=== PATIENT | female | born 1995 | race Caucasian/White ===

== ENCOUNTER 2017-05-15 18:11 | Emergency (ER) | payer SELFPAY ==
[2017-05-15 18:13] VITALS: BP 126/70; PULSE 95; RESP 18; TEMP 36.6; O2SAT 97; BMI 38.2
== END 2017-05-15 19:30 | disposition left against medical advice (07) ==
LOC: ED 19:33
PROVIDERS: Emergency Provider Emergency Medicine
DX: R69 Illness, unspecified (principal)

== ENCOUNTER 2017-08-09 02:52 | Emergency (ER) | payer SELFPAY ==
[2017-08-09 02:54] VITALS: BP 124/70; PULSE 74; RESP 16; TEMP 36.6; O2SAT 100; BMI 38.3
--- NOTE | 2017-08-09 03:10 | ED.VISSUMM ---
- ER Visit Summary Date of Service: 08/09/17 Chief Complaint: Dental pain History of Present Illness: The patient is a 22 F with gradual onset of left-sided dental pain over the past 2 weeks but states the pain got significant only worse tonight. She took Aleve earlier yesterday. She tried Anbesol topically tonight which only helped for about 5 minutes. Patient does report having [facility]. She states the pain is on the left side of her mouth but is unsure if it is on the upper or lower surface. She does not remember a recent dental injury. Physical Examination: Vital signs unremarkable. Patient sitting upright in bed. She is tearful. Head and neck examination was no facial edema or erythema. TMs are clear bilaterally. Intraoral examination reveals left maxillary third molar to be decayed with tenderness. She has mild surrounding gum edema. The left mandibular first molar is also tender with mild gum edema. There is no trismus. There is no submandibular fullness and there is no sign of Andrade's. She is tolerating secretions well and has a strong voice. Uvula is midline. There is no cervical lymphadenopathy. Heart is regular rate and rhythm without murmur. Lung sounds are clear. Test Results: [] Emergency Department Course and Treatment: Patient be given prescriptions for Naprosyn and Pen-Vee K. She be given a home pack of Mentcle only. She will follow with her dentist on Friday as scheduled. Treatment Plan: [] Disposition: Discharge Impression: Odontalgia This note was generated with [employer] dictation software. It may contain incorrect words, spelling, and punctuation that were not noted in review of the chart prior to signing ED Disposition - Plan for ED Patient: Chief Complaint: Dental Referrals: Care Physician,No Primary [Primary Care Provider] -
--- NOTE | 2017-08-09 03:13 | ED.DEP ---
ED Disposition - Plan for ED Patient: Disposition: Home or Assisted Living Chief Complaint: Dental Instructions: ED Tooth Pain Prescriptions: Naproxen [Naprosyn] 500 mg PO BID PRN #20 tablet Penicillin V Potassium 500 mg PO 4X/DAY #40 tablet Additional Instructions: Follow-up with [facility] on Friday as scheduled.
--- NOTE | 2017-08-09 03:13 | ED.DCSUM_ITS ---
- ER Visit Summary Date of Service: 08/09/17 Chief Complaint: Dental pain History of Present Illness: The patient is a 22 F with gradual onset of left- sided dental pain over the past 2 weeks but states the pain got significant only worse tonight. She took Aleve earlier yesterday. She tried Anbesol topically tonight which only helped for about 5 minutes. Patient does report having appointment at [facility] on Friday. She states the pain is on the left side of her mouth but is unsure if it is on the upper or lower surface. She does not remember a recent dental injury. Physical Examination: Vital signs unremarkable. Patient sitting upright in bed. She is tearful. Head and neck examination was no facial edema or erythema. TMs are clear bilaterally. Intraoral examination reveals left maxillary third molar to be decayed with tenderness. She has mild surrounding gum edema. The left mandibular first molar is also tender with mild gum edema. There is no trismus. There is no submandibular fullness and there is no sign of Andrade's. She is tolerating secretions well and has a strong voice. Uvula is midline. There is no cervical lymphadenopathy. Heart is regular rate and rhythm without murmur. Lung sounds are clear. Test Results: [] Emergency Department Course and Treatment: Patient be given prescriptions for Naprosyn and Pen-Vee K. She be given a home pack of Surprise only. She will follow with her dentist on Friday as scheduled. Treatment Plan: [] Disposition: Discharge Impression: Odontalgia This note was generated with [employer] dictation software. It may contain incorrect words, spelling, and punctuation that were not noted in review of the chart prior to signing ED Disposition - Plan for ED Patient: Chief Complaint: Dental Referrals: Care Physician,No Primary [Primary Care Provider] -
[2017-08-09] MEDS: Penicillin Vk 250 MG Tablet 500 MG PO (03:23)
[2017-08-09] MEDS: HYDROcodone Bitartrate/Apap 5/325 Tablet PO ×2 (03:24)
[2017-08-09] MEDS: Naproxen 500 MG Tablet PO (03:24)
[2017-08-09 03:30] VITALS: RESP 18
== END 2017-08-09 03:31 | disposition home or self-care (01) ==
LOC: ED 03:24
PROVIDERS: Emergency Provider Emergency Medicine
DX: K08.89 Other specified disorders of teeth and supporting structures (principal); K02.9 Dental caries, unspecified; F32.9 Major depressive disorder, single episode, unspecified; Z79.899 Other long term (current) drug therapy; Z72.0 Tobacco use
CPT/HCPCS: 99283

== ENCOUNTER 2017-08-20 20:59 | Emergency (ER) | payer SELFPAY ==
[2017-08-20 21:00] VITALS: BP 98/61; PULSE 74; RESP 18; TEMP 36.8; O2SAT 99; BMI 36.8
[2017-08-20 21:54] LABS: Absolute Lymphocyte Count 2.42 X10^3/ul (0.83-4.51); Absolute Neutrophil Count 5.8 X10^3/uL (2.0-7.7); Basophil# 0.05 X10^3/uL; Basophil% 0.5 % (0-1); Eosinophil# 0.43 X10^3/uL; Eosinophils% 4.6 % (0-5); Hematocrit 38.8 % (37-47); Hemoglobin 12.9 g/dl (12.0-15.0); Lymphocyte # 2.42 X10^3/ul (4.0); Mean Corp Hgb Conc 33.2 g/gl (32-36); Mean Corpuscular Hgb 28.6 pg (27.0-32.0); Mean Platelet Vol. 9.4 fl (6.2-12.0); Monocyte# 0.58 X10^3/uL; Monocyte% 6.2 % (0-10); Neutrophil # 5.81 X10^3/uL (2.7-7.7); Neutrophil % 62.6 % (47-70); Platelet Count 346 K/mm3 (150-450); RBC Distribution Width CV 13.1 % (11.6-14.6); RBC Distribution Width SD 41.5 fl (35.1-43.9); Red Blood Count 4.51 M/mm3 (4.2-5.4); White Blood Count 9.3 K/mm3 (4.4-11.0)
[2017-08-20 21:55] LABS: POSITIVE COUNT NO; POSITIVE DIFFERENTIAL NO; POSITIVE MORPHOLOGY NO
[2017-08-20 21:56] LABS: Amphetamine Urine VISTA NEGATIVE (<1000 ng/mL); Barbiturate Urine VISTA NEGATIVE (< 200 ng/mL); Benzodiazepine Urine VISTA NEGATIVE (< 200 ng/mL); Cocaine Urine VISTA NEGATIVE (< 300 ng/mL); Ecstacy Urine VISTA NEGATIVE (< 500 ng/mL); Methadone Urine VISTA NEGATIVE (< 300 ng/mL); PCP Urine VISTA NEGATIVE (< 25 ng/mL); THC Urine VISTA NEGATIVE (< 50 ng/mL); Vista UDS pH Range 6
[2017-08-20 22:00] VITALS: RESP 16
[2017-08-20 22:01] LABS: Bacteria 0 SEEN /hpf (None Seen); Mucous, Urine 0 SEEN /hpf (<or=2+); Squamous Epithelial Cells - UA 0 SEEN /hpf (5-10)
[2017-08-20 22:02] LABS: Color, Urine Yellow (Yellow); Glucose, Dipstick Normal (Normal); Ketone-Dipstick Negative (Negative); Leukocyte Esterase-Dipstick 25 /ul (Negative); Nitrite-Dipstick Negative (Negative); Occult Blood-Urine 250 /ul (Negative); Protein-Dipstick 15 mg/dl (Negative); Specific Gravity, Urine 1.015 (1.002-1.030); Urine Bilirubin Dipstick Negative (Negative); Urine Clarity Sl. Cloudy (Clear); Urine Urobilinogen Normal (Normal)
[2017-08-20 22:08] LABS: Anion Gap 4 (5-15); BUN 11 mg/dL (7-18); BUN/Creat Ratio 15.9 RATIO (10-20); Calcium,Total 8.9 mg/dL (8.5-10.1); Chloride 110 mmol/L (98-107); Creatinine, Serum 0.69 mg/dL (0.55-1.02); EST Glomerular Filtration Rate 111 mL/min (>60); Est Glom Filt Rate - Afr Amer 135 mL/min (>60); Glucose 93 mg/dL (74-106); Potassium 3.7 mmol/L (3.5-5.1); Sodium Level 138 mmol/L (136-145)
[2017-08-20 22:13] LABS: Pregnancy, Serum, hCG Quali. NEGATIVE Negative (0-9 Nonpreg)
[2017-08-20 22:13] LABS: Red Blood Cells-Urine 50-100 SEEN /hpf (0-5); White Blood Cells 0-5 SEEN /hpf (0-5)
[2017-08-20 22:22] LABS: Alcohol, Blood (Medical)-Serum < 3.0 mg/dL
--- NOTE | 2017-08-20 22:31 | NURSING ---
CLOTHING INVENTORY: BOOTS, SOCKS, JEANS, TSHIRT, UNDERWEAR.
--- NOTE | 2017-08-20 22:35 | ED.RN ---
CALLED [facility]. 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
--- NOTE | 2017-08-20 23:10 | ED.RN ---
CRISIS IS HERE.
[2017-08-20 23:42] VITALS: PULSE 73; RESP 16; O2SAT 98
--- NOTE | 2017-08-21 00:03 | ED.VISSUMM ---
- ER Visit Summary Date of Service: 08/21/17 Chief Complaint: Suicidal thoughts History of Present Illness: The patient is a 22 F who reports that she has had depression for quite some time. She went to the [facility] proximally 1 month ago and was placed on Celexa. She reports that she actually feels that she is worsening rather than improving. Over the past few days she has had suicidal thoughts. When asked about a plan she reports that there are a lot of chemicals at work or that she may kill herself with her jeep. Physical Examination: Vitals: Stable. Afebrile. General: Well-nourished and well-developed. Head: Normocephalic atraumatic. Neck: Supple, no lymphadenopathy. No JVD. Nontender. Cardiovascular: Regular rate and rhythm. No murmurs. Respiratory: No respiratory distress. Clear to auscultation bilaterally. Abdominal: Soft, nontender, nondistended, normal bowel sounds. No guarding, rebound, or peritoneal signs. Back: Nontender. Extremities: Nontender, no edema. Skin: Normal color, no rash. Neurologic: Alert and oriented ?3. Cranial nerves II through XII are intact. Normal strength and sensation. Mental status exam: Patient appears their stated age. Good posture and grooming. Good eye contact. Normal rate, volume, and latency of speech. No homicidal ideation. No auditory or visual hallucinations. Flow of thought is logical. Insight and judgment is fair. Test Results: BC is normal. Chem-7 is more for chloride of 110. UA shows no infection. She does have 50-100 red blood cells, but she is on her menses. test is negative. Tox screen is normal. Blood alcohol level is negative. Emergency Department Course and Treatment: Patient's resting comfortably without complaint. Treatment Plan: The patient was seen by the counseling center in the emergency department. She has had some time to calm down. She denies any suicidal plan at this time. She reports she has suicidal thoughts that have been long-standing. She is able to contract for safety. She will be discharged instructions to follow-up with them tomorrow for further evaluation. Return to the emergency department for any worsening symptoms. Disposition: To home in improved and stable condition. Impression: 1. Depression. This note was generated with [employer] software. It may contain incorrect words, spelling, and punctuation that were not noted in review of the chart prior to signing ED Disposition - Plan for ED Patient: Chief Complaint: Suicidal Instructions: ED Depression Referrals: Counseling,Center [GROUP OF PHYSICIANS] - As soon as possible
[2017-08-21 01:20] VITALS: BP 121/76; BP 124/89; PULSE 67; RESP 16; O2SAT 96; O2SAT 98
--- NOTE | 2017-08-21 01:21 | NURSING ---
pt signed a safety plan. pt following up with the couseling center.
== END 2017-08-21 01:21 | disposition home or self-care (01) ==
LOC: ED 21:48
PROVIDERS: Emergency Provider Emergency Medicine
DX: F32.9 Major depressive disorder, single episode, unspecified (principal); R30.0 Dysuria; Z79.899 Other long term (current) drug therapy; F17.200 Nicotine dependence, unspecified, uncomplicated
CPT/HCPCS: 36415; 80048; 80307; 80320; 81001; 84703; 85025; 99283; G0480

== ENCOUNTER 2017-09-15 02:11 | Emergency (ER) | payer SELFPAY ==
[2017-09-15 02:12] VITALS: BP 142/92; PULSE 77; RESP 17; TEMP 36.6; O2SAT 99; BMI 36.9
--- NOTE | 2017-09-15 02:37 | ED.VISSUMM ---
- ER Visit Summary Date of Service: 09/15/17 Chief Complaint: Left lower molar dental pain History of Present Illness: The patient is a 22 F history of anxiety and depression. States yesterday started having left lower molar dental pain. Denies any trauma. Denies any fever. States that there is swelling in that area. States it hurts more to chew on that last lower tooth. Physical Examination: Well-appearing young female. Vital signs are stable afebrile. She does not look septic toxic. H EENT exam left lower molar is tender palpation. There is mild periapical swelling. There is no trismus. Posterior pharynx is unremarkable. She has no trouble swallowing or breathing. Most of her dentition is in reasonable condition. There are few teeth with cavities. Neck nontender no lymphadenopathy. There is no facial swelling. No trouble swallowing or breathing. Lungs clear to auscultation bilaterally. Heart regular rhythm no murmur. Abdomen soft nontender. She is moving all 4 extremities. Neurologically she is awake and alert. Test Results: None Emergency Department Course and Treatment: Dental block performed with local anesthetic to the left lower molar. Treatment Plan: Treated with Naprosyn for pain and Pen-Vee K for possible dental abscess. Patient will follow-up with [facility] and dental clinic. Disposition: Discharge Impression: Acute left lower molar dental pain rule out dental abscess Dental block for local anesthetic by ER physician This note was generated with [employer] dictation software. It may contain incorrect words, spelling, and punctuation that were not noted in review of the chart prior to signing ED Disposition - Plan for ED Patient: Chief Complaint: Dental Referrals: Care Physician,No Primary [Primary Care Provider] -
--- NOTE | 2017-09-15 02:39 | ED.DEP ---
ED Disposition - Plan for ED Patient: Disposition: Home or Assisted Living Chief Complaint: Dental Instructions: Dental Abscess Prescriptions: Naproxen [Naprosyn] 500 mg PO BID PRN PRN #20 tab PRN Reason: Pain Penicillin (100ML) [Pen-Vee K] 500 mg PO 4X/DAY #40 cap Referrals: Genevieve Jara [NON-STAFF] - As soon as possible Additional Instructions: Up with a dentist soon as possible. Naprosyn or Motrin for. Pen-Vee K antibiotic 1 pill 4 times a day for possible dental abscess.
== END 2017-09-15 02:50 | disposition home or self-care (01) ==
PROVIDERS: Emergency Provider Emergency Medicine
DX: K04.7 Periapical abscess without sinus (principal); K02.9 Dental caries, unspecified; K08.89 Other specified disorders of teeth and supporting structures; F41.9 Anxiety disorder, unspecified; F32.9 Major depressive disorder, single episode, unspecified; Z79.899 Other long term (current) drug therapy; Z72.0 Tobacco use
CPT/HCPCS: 64402; 99282

== ENCOUNTER 2017-10-20 23:40 | Emergency (ER) | payer OTHER, SELFPAY ==
[2017-10-20 23:41] VITALS: BP 117/80; PULSE 69; RESP 16; TEMP 37; O2SAT 99; BMI 36.6
--- NOTE | 2017-10-21 00:20 | ED.DCSUM_ITS ---
- ER Visit Summary Date of Service: 10/21/17 Chief Complaint: Anxiety attack History of Present Illness: The patient is a 22 F who presents with anxiety. She was in an argument. They were arguing over whether her tattoo was infected. She complains of sharp chest pain which began when she became very anxious and being crying. She otherwise has no complaints. Physical Examination: Afebrile vitals are normal Patient tearful and anxious Heart regular rate and rhythm Lungs clear Abdomen soft I see no evidence of infection at the site of her tattoo there is no erythema no streaking no tenderness or warmth Test Results: Not indicated Emergency Department Course and Treatment: Patient presents with a panic attack and anxiety. She has no suicidal or homicidal ideation. She was given a dose of Ativan here. She was discharged. She was advised to follow-up with her healthcare provider who treats her anxiety depression and bipolar disorder. Treatment Plan: [] Disposition: Discharge Impression: Anxiety This note was generated with [employer] dictation software. It may contain incorrect words, spelling, and punctuation that were not noted in review of the chart prior to signing ED Disposition - Plan for ED Patient: Chief Complaint: Anxiety Referrals: Care Physician,No Primary [Primary Care Provider] -
--- NOTE | 2017-10-21 00:20 | ED.DEP ---
ED Disposition - Plan for ED Patient: Chief Complaint: Anxiety Instructions: ED Panic Attack Referrals: Care Physician,No Primary [Primary Care Provider] -
[2017-10-21] MEDS: LORazepam 1 MG Tablet PO (00:32)
[2017-10-21 00:35] VITALS: BP 110/56; PULSE 65; RESP 17; O2SAT 98
== END 2017-10-21 00:36 | disposition home or self-care (01) ==
LOC: ED 10-21 00:22
PROVIDERS: Emergency Provider Emergency Medicine
DX: F41.9 Anxiety disorder, unspecified (principal); F32.9 Major depressive disorder, single episode, unspecified; F31.9 Bipolar disorder, unspecified; Z79.899 Other long term (current) drug therapy; Z72.0 Tobacco use
CPT/HCPCS: 99283

== ENCOUNTER 2017-11-07 00:02 | Observation (INO) | payer OTHER, SELFPAY ==
[2017-11-07] VITALS (8 sets, daily range): BP systolic 111–136; BP diastolic 61–82; PULSE 73–89; RESP 16–18; TEMP 36.5–37.1; O2SAT 97–99; BMI 36.8; BMI 37.3
--- NOTE | 2017-11-07 01:16 | CT_ITS ---
STUDY: CT BRAIN WITHOUT CONTRAST REASON FOR EXAM: Female, 22 years old. Constant ringing in ears. Dizziness. Headache. Symptoms started last night. RADIATION DOSAGE (If Supplied By Facility): CTDIvol = ( 44.99 ) mGy, DLP = ( 745.49 ) mGycm TECHNIQUE: Transaxial CT imaging of the brain was performed without administration of intravenous contrast material. Individualized dose optimization techniques were used for this CT. COMPARISON: None. FINDINGS: Normal soft tissue structures. Normal calvarium. Normal size ventricles and extra-axial spaces for the patient's age. Normal white matter tracts of the cerebral hemispheres. Normal basal ganglia and thalami. Normal brainstem. Normal cerebellum. There is no intracranial hemorrhage. There are no findings of an acute ischemic infarction. Normal visualized paranasal sinuses. CT/Brain/Head without Contrast IMPRESSION: Normal unenhanced CT scan of the brain. Electronically Signed: Keaton Gonzalez MD at 2:23 EDT , Service support ,
--- NOTE | 2017-11-07 01:32 | ED.VISSUMM ---
- ER Visit Summary Date of Service: 11/07/17 Chief Complaint: Tinnitus History of Present Illness: The patient is a 22 F who presents with tinnitus that began yesterday. Patient states she feels like there is ringing in both ears. Patient states she feels like she left her earplugs in but knows that she did not. Patient denies any other hearing changes. Patient admits to a mild headache and right maxillary pressure. Patient states she takes for regular strength aspirin daily. Patient is also on Prozac and Seroquel for depression, anxiety, and bipolar disorder. Physical Examination: Vital signs are stable. Patient is afebrile. Patient is in no acute distress. Tympanic membranes are clear bilaterally. External auditory canals are clear bilaterally. Pupils are equal, round, reactive to light bilateral. Extraocular muscles are intact. Oral mucosa is pink and moist. Neck is supple. Trachea is midline. There is no JVD noted. Heart was regular rate and rhythm. Lungs are clear and equal bilateral. There is good respiratory effort noted. Cranial nerves II through XII are intact. There are no focal motor or sensory deficits noted. Test Results: CT scan of the brain was obtained. There is no acute intracranial abnormality noted. CBC showed a mild leukocytosis of 12.0. Basic metabolic profile was within normal limits. Acetaminophen level was normal. Salicylate level was elevated at 38.2. Emergency Department Course and Treatment: Case was discussed with poison control. They recommended administering 2 A of bicarb now and 2-3 A of bicarb and D5W and running it at 1.5-2 times maintenance rate. They recommend repeating the levels every 2 hours and once the levels are less than 30 the bicarb drip may be stopped. Case was discussed with the hospitalist. Patient will be admitted for salicylate toxicity. Disposition: Admit to hospital Impression: Salicylate toxicity This note was generated with [employer] dictation software. It may contain incorrect words, spelling, and punctuation that were not noted in review of the chart prior to signing ED Disposition - Plan for ED Patient: Disposition: Acute Care Hospital [facility] Chief Complaint: Ear Problem Diagnosis: Salicylate poisoning Referrals: Care Physician,No Primary [Primary Care Provider] -
--- NOTE | 2017-11-07 01:35 | ED.DCSUM_ITS ---
- ER Visit Summary Date of Service: 11/07/17 Chief Complaint: Tinnitus History of Present Illness: The patient is a 22 F who presents with tinnitus that began yesterday. Patient states she feels like there is ringing in both ears. Patient states she feels like she left her earplugs in but knows that she did not. Patient denies any other hearing changes. Patient admits to a mild headache and right maxillary pressure. Patient states she takes for regular strength aspirin daily. Patient is also on Prozac and Seroquel for depression, anxiety, and bipolar disorder. Physical Examination: Vital signs are stable. Patient is afebrile. Patient is in no acute distress. Tympanic membranes are clear bilaterally. External auditory canals are clear bilaterally. Pupils are equal, round, reactive to light bilateral. Extraocular muscles are intact. Oral mucosa is pink and moist. Neck is supple. Trachea is midline. There is no JVD noted. Heart was regular rate and rhythm. Lungs are clear and equal bilateral. There is good respiratory effort noted. Cranial nerves II through XII are intact. There are no focal motor or sensory deficits noted. Test Results: CT scan of the brain was obtained. There is no acute intracranial abnormality noted. CBC showed a mild leukocytosis of 12.0. Basic metabolic profile was within normal limits. Acetaminophen level was normal. Salicylate level was elevated at 38.2. Emergency Department Course and Treatment: Case was discussed with poison control. They recommended administering 2 A of bicarb now and 2-3 A of bicarb and D5W and running it at 1.5-2 times maintenance rate. They recommend repeating the levels every 2 hours and once the levels are less than 30 the bicarb drip may be stopped. Case was discussed with the hospitalist. Patient will be admitted for salicylate toxicity. Disposition: Admit to hospital Impression: Salicylate toxicity This note was generated with [employer] dictation software. It may contain incorrect words, spelling, and punctuation that were not noted in review of the chart prior to signing ED Disposition - Plan for ED Patient: Disposition: Acute Care Hospital [facility] Chief Complaint: Ear Problem Diagnosis: Salicylate poisoning Referrals: Care Physician,No Primary [Primary Care Provider] -
[2017-11-07 02:13] LABS: Absolute Lymphocyte Count 3.14 X10^3/ul (0.83-4.51); Absolute Neutrophil Count 7.5 X10^3/uL (2.0-7.7); Basophil# 0.06 X10^3/uL; Basophil% 0.5 % (0-1); Eosinophil# 0.48 X10^3/uL; Hemoglobin 13.2 g/dl (12.0-15.0); Lymphocyte # 3.14 X10^3/ul (4.0); Lymphocyte % 26.2 % (19-41); Mean Corpuscular Hgb 29.1 pg (27.0-32.0); Mean Corpuscular Volume 88.3 fL (81-99); Mean Platelet Vol. 9.7 fl (6.2-12.0); Monocyte# 0.84 X10^3/uL; Neutrophil # 7.46 X10^3/uL (2.7-7.7); Neutrophil % 62.2 % (47-70); Platelet Count 392 K/mm3 (150-450); RBC Distribution Width SD 45.4 fl (35.1-43.9); Red Blood Count 4.53 M/mm3 (4.2-5.4)
[2017-11-07 02:19] LABS: POSITIVE COUNT NO; POSITIVE DIFFERENTIAL NO; POSITIVE MORPHOLOGY NO
[2017-11-07 02:30] LABS: ALB/GLOB Ratio 0.9 RATIO (0.9-2.4); AST(SGOT) 20 U/L (15-37); Alanine Aminotransfer ALT/SGPT 20 U/L (13-56); Albumin, Serum 3.8 g/dL (3.2-5.0); Alkaline Phosphatase 98 U/L (45-117); Anion Gap 5 (5-15); BUN 11 mg/dL (7-18); BUN/Creat Ratio 11.6 RATIO (10-20); Calcium,Total 8.6 mg/dL (8.5-10.1); Chloride 112 mmol/L (98-107); Creatinine, Serum 0.95 mg/dL (0.55-1.02); EST Glomerular Filtration Rate 77 mL/min (>60); Est Glom Filt Rate - Afr Amer 93 mL/min (>60); Estimated Creatinine Clearance 82.88 ml/min; Globulin 4.1 g/dL (2.2-4.2); Glucose 82 mg/dL (74-106); Potassium 3.6 mmol/L (3.5-5.1); Protein, Total 7.9 g/dL (6.4-8.2); Sodium Level 141 mmol/L (136-145)
--- NOTE | 2017-11-07 03:08 | ED.RN ---
dr rodrigez aware of elevated salicylates level of 38.2.
[2017-11-07 03:23] LABS: Acetaminophen (Tylenol) Level < 10.0 ug/mL (10.0-30.0); Salicylate 38.2 mg/dL (2.8-20.0)
--- NOTE | 2017-11-07 03:59 | PCM.HP.STD ---
Problem List (1) Tooth ache Status: Acute (2) Salicylate poisoning Status: Acute (3) Depression Status: Chronic (4) Anxiety Status: Chronic (5) Bipolar 1 disorder Status: Chronic History of Present Illness Date of Admission: 11/07/17 Chief Complaint: Ringing in bilateral ears ?1 day The patient is a 22 year old F with a significant history of tobacco abuse, depression and anxiety who presented to the emergency department because of ringing in bilateral ears ?1 day. Patient stated that she has tooth ache at the right side upper molar teeth. And because of the tooth ache she took a total of 7 tablets 2 days before her admission. She took the 7 tablets not at the same time but rather throughout the course of the day. The evening after taking the pills she began to have ranging in her bilateral ears and headache. Because of the progression of his symptoms she came to the emergency department. Upon conversation with the emergency department doctor, poison control was called. Poison control recommended sodium bicarbonate IV push and maintenance fluid of sodium bicarbonate in D5W. Also, poison control recommended every 2 hours check of salicylate levels. And if 2 salicylate readings 2 hours apart shows salicylate levels of less than 30 the patient could be discharged home. Additionally, poison control asked that the patient's potassium be monitored and replaced of needed. In regard to her tooth ache, the pain was 6 out of 10 when it started. But now it is about 2 out of 10 and tolerable. Past Medical History Past Medical History (Chronic Problems): Chronic Problems (Last Updated 11/07/17 @ 05:00 by Chandan Kenney MD) Depression (Chronic) Anxiety (Chronic) Bipolar 1 disorder (Chronic) Medical History: Medical History (Last Updated 11/07/17 @ 05:00 by Chandan Kenney MD) Anxiety F41.9 Bipolar Depression F32.9 Allergies red (food color) Allergy (Verified 11/07/17 00:02) Hives Home Medications: Ambulatory Orders Medication Instructions Recorded Fluoxetine HCl [Prozac] 40 mg PO DAILY 09/15/17 Quetiapine Fumarate [Seroquel] 100 mg PO DAILY 10/20/17 Surgical History: tonsillectomy Psychiatric History: Anxiety, Bipolar, Depression Lives: Spouse/ Significant Other Smoking Status: Current every day smoker Tobacco Use: Non-smoker Alcohol: Occasional Drugs: None - *Family History Maternal History Items: Cancer - Cervical Review of Systems Constitutional: Denies: Chills, Fever, Weight Change HEENT: Reports: Head Aches, Sinus Drainage Cardiovascular: Denies: Chest Pain, Palpitations Respiratory: Denies: Cough, Shortness of breath at rest, Sputum production Gastrointestinal: Denies: Abdominal Pain, Nausea, Vomiting Genitourinary: Denies: Dysuria Musculoskeletal: Denies: Joint Pain, Joint Tenderness Skin: Denies: Rash, Wounds Neurological: Denies: Numbness, Tingling, Focal weakness Psychiatric: Reports: Anxiety, Depression Hematologic/ Lymphatic: Denies: Easy Bruising, Easy Bleeding VTE Information - Inpt Only VTE Present on Admission: No VTE Mechan Device Prophylaxis: None VTE Pharm Prophylaxis ordered?: No Reason prophylaxis not ordered:: Treatment Not Indicated Patient Problems: Active and Suspected Problems (Last Updated 11/07/17 @ 05:00 by Chandan Kenney MD) Salicylate poisoning (Acute) Tooth ache (Acute) - Physical Exam General: Alert, Oriented x3, Cooperative HEENT: - - Teeth unremarkable per my examination Neck: Supple, No JVD, Negative Carotid Bruits Lungs: Clear to auscultation, Normal air movement Cardiovascular: Regular rate, No murmurs Abdomen: Bowel Sounds Present, Soft, Non Tender Extremities: No edema, Capillary Refill Less than 3 Seconds Skin: No rashes, No breakdown Musculoskeletal: No Tenderness to Palpation of Joints or Extremities Neurological: Cranial nerves II-XII grossly intact Psych/Mental Status: - - Tearful after admission was recommended to patient. Vital Signs Temp Pulse Resp BP Pulse Ox 97.7 F L 89 16 136/82 H 98 11/07/17 00:03 11/07/17 03:06 11/07/17 03:06 11/07/17 03:06 11/07/17 03:06 Oxygen Delivery Method Room Air Weight: 100.244 kg Body Mass Index (BMI) 36.8 Laboratory Tests Past 24 Hrs 11/07/17 11/07/17 11/07/17 02:05 02:05 02:05 WBC 12.0 H RBC 4.53 Hgb 13.2 Hct 40.0 MCV 88.3 MCH 29.1 MCHC 33.0 RDW 14.0 RDW Differential 45.4 H Plt Count 392 MPV 9.7 Immature Gran % (Auto) 0.100 Neut % (Auto) 62.2 Lymph % (Auto) 26.2 Randall % (Auto) 7.0 Eos % (Auto) 4.0 Baso % (Auto) 0.5 Absolute Neuts (auto) 7.5 Absolute Lymphs (auto) 3.14 Total Counted Not Reportable Sodium 141 Potassium 3.6 Chloride 112 H Carbon Dioxide 24.0 Anion Gap 5 BUN 11 Creatinine 0.95 Estim Creat Clear Calc 82.88 Est GFR (MDRD) Af Amer 93 Est GFR (MDRD) Non-Af 77 BUN/Creatinine Ratio 11.6 Glucose 82 Calcium 8.6 Total Bilirubin 0.20 AST 20 ALT 20 Alkaline Phosphatase 98 Total Protein 7.9 Albumin 3.8 Globulin 4.1 Albumin/Globulin Ratio 0.9 Salicylates 38.2 H* Acetaminophen < 10.0 L Assessment/Plan All Active Problems (Last Updated 11/07/17 @ 05:00 by Chandan Kenney MD) Salicylate poisoning (Acute) Tooth ache (Acute) The patient is a 22 year old F with a significant history of tobacco abuse, depression and anxiety who presented to the emergency department because of a tinnitus and found to have elevated salicylate level. Salicylate poison Salicylate Level elevated at 32. Probably her tinnitus is due to salicylate poisoning. Sodium bicarbonate 100 mEq IV ?1 at emergency department Maintenance sodium bicarbonate infusion Continue sodium bicarbonate maintenance infusion until every 2 hours salicylates level is less than 30 on 2 consecutive readings. BMP every 4 hours. EKG Tooth ache Tylenol as needed as needed. Patient to follow up with dentist upon discharge. Tobacco abuse Upon hearing that she will require admission patient was very tearful and was requesting that she be allowed to go outside emergency department to smoke. However per policy patient was note allowed to go and smoke. The patient agreed to nicotine patch. Nicotine patch ordered Patient counseled. Depression, anxiety and bipolar Prozac and Seroquel continued DVT prophylaxis Low risk Ambulation. Code Visit OBSV E&M: 25473 Initial observation care L3
[2017-11-07] MEDS: Sodium Bicarbonate 8.4% 50 ML Syringe 100 MEQ IV (04:38)
[2017-11-07 05:29] LABS: International Normalized Ratio 1.1; Partial Thromboplast Time 30.3 Seconds (24.1-36.2); Prothrombin Time (Protime)PT. 14.4 SECONDS (11.7-14.9)
[2017-11-07] MEDS: QUEtiapine 100 MG Tablet PO (05:59)
[2017-11-07 07:29] LABS: Salicylate 29.9 mg/dL (2.8-20.0)
[2017-11-07 07:32] LABS: Anion Gap 3 (5-15); BUN 11 mg/dL (7-18); BUN/Creat Ratio 12.5 RATIO (10-20); Chloride 110 mmol/L (98-107); Creatinine, Serum 0.88 mg/dL (0.55-1.02); EST Glomerular Filtration Rate 84 mL/min (>60); Est Glom Filt Rate - Afr Amer 102 mL/min (>60); Estimated Creatinine Clearance 89.47 ml/min; Glucose 94 mg/dL (74-106); Potassium 3.1 mmol/L (3.5-5.1); Sodium Level 143 mmol/L (136-145)
[2017-11-07] MEDS: FLUoxetine 20 MG Capsule 40 MG PO (09:01)
[2017-11-07 10:04] LABS: Salicylate 26.1 mg/dL (2.8-20.0)
[2017-11-07 11:05] LABS: Blood Gas Specimen Type VEN; Time Given 1059; VBG BASE EXCESS 6 mmol/L (-1.0-3.5); VBG Bicarbonate 29 mmol/L (22-26); VBG Oxygen Content 30 mmol/L (23-33); VBG PO2 129 mmHg (25-40); VBG SO2 99 % (50-70); VBG pCO2 37.1 mmHg (41-51)
[2017-11-07 11:24] LABS: Anion Gap 5 (5-15); BUN 9 mg/dL (7-18); BUN/Creat Ratio 11.3 RATIO (10-20); Calcium,Total 7.8 mg/dL (8.5-10.1); Chloride 106 mmol/L (98-107); Creatinine, Serum 0.79 mg/dL (0.55-1.02); EST Glomerular Filtration Rate 95 mL/min (>60); Est Glom Filt Rate - Afr Amer 115 mL/min (>60); Estimated Creatinine Clearance 99.66 ml/min; Glucose 102 mg/dL (74-106); Potassium 2.9 mmol/L (3.5-5.1); Sodium Level 142 mmol/L (136-145)
--- NOTE | 2017-11-07 11:27 | DCINST_ITS ---
- Discharge Diagnoses Current Active Problems: Current Active and Chronic Problems (Last Updated 11/07/17 @ 05:00 by Chandan Kenney MD) Salicylate poisoning (Acute) Tooth ache (Acute) Depression (Chronic) Anxiety (Chronic) Bipolar 1 disorder (Chronic) You will use the following diet at home:: No restrictions Your food should be the consistency of: Regular Your liquids should be the consistency of: Regular/Thin Discharge Activity: Return to Normal Activity Weight Bearing Status: Full weight bearing Allergies/Adverse Reactions: Allergies red (food color) Allergy (Verified 11/07/17 00:02) Hives Medications to take at Discharge Fluoxetine HCl [Prozac] 40 mg PO DAILY 09/15/17 Quetiapine Fumarate [Seroquel] 100 mg PO QHS 10/20/17 Acetaminophen [Tylenol] 500 mg PO Q8H PRN PRN tablet 11/07/17 Primary Care Physician: Care Physician,No Primary [Primary Care Provider] - Please follow up with your Primary Care Physician in: in 2 weeks Test Results: Test results from this visit will be discussed in further detail at your follow- up appointment, if applicable.
[2017-11-07] MEDS: HYDROcodone Bitartrate/Apap 5/325 Tablet PO (13:35)
--- NOTE | 2017-11-09 14:42 | PCM.DC.SUM ---
Discharge Date and Diagnosis Date of Admission: 11/07/17 Date of Discharge: 11/07/17 - Primary Discharge Diagnosis #1 salicylate toxicity-unintentional #2 bipolar disorder - Secondary Discharge Diagnosis Chronic Problems (Last Updated 11/07/17 @ 05:00 by Chandan Kenney MD) Depression (Chronic) Anxiety (Chronic) Bipolar 1 disorder (Chronic) Hospital Course and Treatment Operations: None Procedures: None Summary of Care Provided: The patient is a 22 year old F was seen in the emergency room at [facility] with chief complaint of severe tinnitus that began the day before. Patient also admitted to a mild headache. Patient was taking regular strength aspirin daily for toothache, patient also takes Prozac and Seroquel for bipolar disorder and depression. Evaluation in the ER included a CT of the brain which was unremarkable, CBC showed a mild leukocytosis of 12, acetaminophen level was normal, salicylate level was elevated at 38.2. Poison control was contacted and recommended administering bicarb and placing the patient on a bicarb drip. Patient was placed in observation status on PCU, his bicarb drip was continued, repeat salicylate levels were obtained and these were lower, it was decided that the patient did not require bicarb drip any longer. On 11/07/17, patient was seen and examined and felt to be in stable condition for discharge home Discharge Activity: Return to Normal Activity Weight Bearing Status: Full weight bearing Home Medications: Medications to take at Discharge Fluoxetine HCl [Prozac] 40 mg PO DAILY 09/15/17 Quetiapine Fumarate [Seroquel] 100 mg PO QHS 10/20/17 Acetaminophen [Tylenol] 500 mg PO Q8H PRN PRN tablet 11/07/17 Primary Care Physician: Care Physician,No Primary [Primary Care Provider] - Please follow up with your Primary Care Physician in: in 2 weeks Disposition: Home Minutes spent on discharge:: 25 Patient Condition:: Stable Medical Necessity - Tobacco Use Smoking Status: Current every day smoker Tobacco Use: Non-smoker Meaningful Use Info Meaningful Use Diagnoses (Choose all that apply): None applicable Code Visit OBSV E&M: 33637 Observ/hosp same date L3
== END 2017-11-07 11:25 | disposition home or self-care (01) ==
LOC: ED 04:15 → PCU 04:54
PROVIDERS: Admitting Provider Hospitalist; Emergency Provider Emergency Medicine; Visit Provider Internal Medicine
DX: H93.13 Tinnitus, bilateral (principal); R51 Headache; F41.9 Anxiety disorder, unspecified; F31.9 Bipolar disorder, unspecified; T39.095A Adverse effect of salicylates, initial encounter; Z79.899 Other long term (current) drug therapy; F17.200 Nicotine dependence, unspecified, uncomplicated
CPT/HCPCS: 36415; 70450; 80048; 80053; 80329; 82803; 85025; 85610; 85730; 93005; 96365; 96366; 96375; 99282; 99406; A4216; G0480

== ENCOUNTER 2017-11-09 15:05 | Emergency (ER) | payer OTHER, SELFPAY ==
[2017-11-09 15:06] VITALS: BP 132/74; PULSE 78; RESP 16; TEMP 36.8; O2SAT 98; BMI 37.3
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
--- NOTE | 2017-11-09 15:27 | ED.DEP ---
ED Disposition - Plan for ED Patient: Chief Complaint: Other, Pain/Inj Instructions: ED Sprain Strain Neck Prescriptions: Naproxen [Naprosyn] 500 mg PO BID #20 tab Cyclobenzaprine [Flexeril] 10 mg PO TID PRN #20 tab PRN Reason: Muscle Spasm Referrals: Care Physician,No Primary [Primary Care Provider] -
[2017-11-09 15:35] VITALS: BP 125/78; PULSE 85; RESP 14; O2SAT 98
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
== END 2017-11-09 15:48 | disposition home or self-care (01) ==
LOC: ED 15:30
PROVIDERS: Emergency Provider Emergency Medicine
DX: S16.1XXA Strain of muscle, fascia and tendon at neck level, initial encounter (principal); V89.2XXA Person injured in unspecified motor-vehicle accident, traffic, initial encounter; Y93.9 Activity, unspecified; Y92.9 Unspecified place or not applicable; F32.9 Major depressive disorder, single episode, unspecified; Z79.899 Other long term (current) drug therapy; Z72.0 Tobacco use
CPT/HCPCS: 99282

== ENCOUNTER 2018-03-21 13:20 | Emergency (ER) | payer OTHER, SELFPAY ==
[2018-03-21 13:21] VITALS: BP 129/71; PULSE 81; RESP 16; TEMP 35.6; O2SAT 100; BMI 39.3
[2018-03-21 14:22] LABS: Hematocrit 40.5 % (37-47); Hemoglobin 13.4 g/dl (12.0-15.0)
--- NOTE | 2018-03-21 15:00 | US_ITS ---
STUDY: FIRST TRIMESTER OBSTETRICAL ULTRASOUND REASON FOR EXAM: Female, 23 years old. Vaginal bleeding LMP: Approximately 12/25/2017 TECHNIQUE: Transvaginal TECHNICAL QUALITY: Adequate. PRIOR ULTRASOUND: None. FINDINGS: There is visualization of a single gestational sac in a normal intrauterine position. The mean sac diameter (MSD) measures 4.54 cm, indicating an estimated gestational age (EGA) of 10 weeks, 3 days. Gestational sac is somewhat elongated configuration with fluid extending into the cervical canal (funneling). There is a visualized yolk sac. The yolk sac measures 7 mm. The placenta is non-visualized. There is visualization of an embryo with no cardiac activity, consistent with intrauterine demise. The crown-rump length (CRL) measures 2.2 cm, indicating an estimated gestational age (EGA) of 8 weeks, 6 days. The estimated gestation age (EGA) by LMP is 12 weeks, 2 days. The estimated gestation age (EGA) by US is 9 weeks, 5 days. The uterus measures 10.0 x 7.2 x 6.3 cm. There is no demonstrated uterine fibroid. Neither ovary is identified. There is no fluid in the cul de sac. US/Transvaginal w/Preg US IMPRESSION: 1. Intrauterine gestational sac/embryo WITHOUT detectable embryonic cardiac activity and with cervical funneling; failed intrauterine Electronically Signed: Juarez Ocampo MD at 15:46 EST , Service support ,
[2018-03-21 15:04] LABS: hCG Titer Quant., Serum 1408 mIU/mL (<9 non-preg)
[2018-03-21 15:40] VITALS: BP 144/74; PULSE 60; RESP 14; O2SAT 100
--- NOTE | 2018-03-21 15:59 | ED.DCSUM_ITS ---
- ER Visit Summary Date of Service: 03/21/18 Chief Complaint: Bleeding in History of Present Illness: The patient is a 23 F who is G1 at 13 weeks. She sees [facility]. She states that last night she had intercourse. When she woke this morning she had bright red blood described as spotting as well as some cramping. She is currently a smoker taking vitamins. Physical Examination: Afebrile vital signs are stable Gen: Well-nourished well-developed Head: Normocephalic atraumatic Eyes: Perrl EOMI ENT: TMs clear no rhinorrhea moist mucous membranes Neck: Supple no lymphadenopathy no JVD nontender CVS: Regular rate rhythm no murmurs normal S1-S2 Respiratory: No distress clear to auscultation bilaterally chest nontender Abdomen: Soft nontender nondistended normal bowel sounds no masses : Vulva examination shows some clotted blood and mucus at the cervical loss. Back: Nontender Extremity: Nontender no edema Skin: Normal color no rash Neuro: alert orientated ?3 CN II-XII intact normal strength sensation reflexes gait cerebellar Psych: Normal affect normal mood Test Results: Quantitative hCG at 04/03/2007. ABO Rh is A+. Hemoglobin 13.4. Pelvic ultrasound does not demonstrate any heart rate represents demise. Emergency Department Course and Treatment: I spoke with [employer]. They have come to the emergency department to evaluate the patient. Impression: 1. Inevitable This note was generated with [employer] dictation software. It may contain incorrect words, spelling, and punctuation that were not noted in review of the chart prior to signing ED Disposition - Plan for ED Patient: Disposition: Home or Assisted Living Chief Complaint: Vag Bld, Preg Instructions: ED Miscarriage Incom Referrals: Kirsten Ahmadi DO [STAFF PHYSICIAN] - (on Friday)
--- NOTE | 2018-03-21 16:45 | HP.PCM_ITS ---
- Problem List (1) Missed Status: Acute History Date of Admission: 11/07/17 Gestational age: 8w6d by CRL History of this : This is a 23 year-old, G1, P0, who should be at 13 weeks gestational age by LMP. She presents to the ED with cramping and spotting. She states she did have intercourse last night. Denies any other symptoms today. No lightheadedness, dizziness, fatigue. She states this has been uncomplicated. Medical History: Medical History (Last Updated 11/07/17 @ 05:00 by Chandan Kenney MD) Anxiety F41.9 Bipolar Depression F32.9 Surgical History: Surgical History (Last Updated 03/21/18 @ 16:43 by Kirsten Ahmadi DO) Hx of tonsillectomy Z90.89 Allergies red (food color) Allergy (Verified 11/07/17 00:02) Hives Home Medications: Home Medications NK 03/21/18 Smoking Status: Current every day smoker Alcohol: None Number of Fetus(es): 1 History Past Pregnancies: Past Pregnancies Delivery Date Name GA/Weeks Outcome Route Weight Infant Gender Labor Length Anesthesia Delivery Location Provider FOB Labs: Rh positive, Hgb 13 Review of Systems Constitutional: Denies: Chills, Fever HEENT: Denies: Head Aches Cardiovascular: Denies: Chest Pain Respiratory: Denies: Shortness of Breath Gastrointestinal: Reports: Abdominal Pain. Denies: Constipation, Diarrhea, Nausea, Vomiting Genitourinary: Denies: Dysuria Gynecological: Reports: Vaginal bleeding Physical Exam Vitals: Vital Signs Temp Pulse Resp BP Pulse Ox 96.0 F L 60 14 144/74 H 100 03/21/18 13:21 03/21/18 15:40 03/21/18 15:40 03/21/18 15:40 03/21/18 15:40 General: Alert, No apparent distress HEENT: Atraumatic Lungs: - - No increased resp effort Abdomen: Soft, Non Tender, Non-Distended Extremities:: No edema Neurological: Neuro grossly intact MEDICAL PHYSIOLOGIST: Normal external genitalia Cervix Dilation (cm): -3 Effacement (%): 40 Assessment/Plan All Active Problems (Last Updated 11/07/17 @ 05:00 by Chandan Kenney MD) Salicylate poisoning (Acute) Tooth ache (Acute) Missed (Acute) This is a 23 year-old, G1, P0, who is at 13 weeks gestational age by LMP. Presented to the ED with cramping and spotting. - Ultrasound shows CRL measuring 8w6d and no cardiac activity c/w MAB - Hgb 13, Rh positive - Cvx 0.5/t/h, minimal bleeding on exam - Reviewed management options including expectant, medical and surgical management - Discussed MAB and all questions answered - Patient desires expectant management for now, and would like to follow up in the office on Friday as she is considering Cytotec. She declines surgical management - Discussed that she may pass the before Friday, and reviewed what to expect. Reviewed bleeding precautions. Discussed Motrin, Tylenol and heat for pain control - Ok for d/c home with follow up in the office
[2018-03-21 16:49] VITALS: BP 121/63; PULSE 57; RESP 17
--- NOTE | 2018-03-21 16:49 | ED.RN ---
IV DC'ED, CATHETER INTACT, SMALL GAUZE DRESSING PLACED. DISCHARGE INSTRUCTIONS GIVEN TO AND REVIEWED WITH PATIENT, PATIENT DENIES QUESTIONS OR CONCERNS AND VOICES UNDERSTANDING OF DISCHARGE INSTRUCTIONS. PT AMBULATES OUT OF ROOM WITHOUT DIFFICULTY.
== END 2018-03-21 16:50 | disposition home or self-care (01) ==
PROVIDERS: Emergency Provider Emergency Medicine
DX: O02.1 Missed abortion (principal); O99.341 Other mental disorders complicating pregnancy, first trimester; F31.9 Bipolar disorder, unspecified; O99.331 Smoking (tobacco) complicating pregnancy, first trimester; F17.200 Nicotine dependence, unspecified, uncomplicated; Z3A.13 13 weeks gestation of pregnancy
CPT/HCPCS: 76817; 84702; 85014; 85018; 86900; 99283; A4216

== ENCOUNTER 2018-03-26 15:55 | Emergency (ER) | payer OTHER, SELFPAY ==
[2018-03-26 15:56] VITALS: BP 125/66; PULSE 87; RESP 16; TEMP 36.4; O2SAT 100; BMI 40.1
--- NOTE | 2018-03-26 16:11 | ED.RN ---
pt states methotrexate prescribed but has not started
[2018-03-26 17:04] LABS: Bacteria 0 SEEN /hpf (None Seen); Mucous, Urine 0 SEEN /hpf (<or=2+); Red Blood Cells-Urine 0 SEEN /hpf (0-5)
[2018-03-26 17:06] LABS: Color, Urine Yellow (Yellow); Glucose, Dipstick Normal (Normal); Ketone-Dipstick Negative (Negative); Leukocyte Esterase-Dipstick Negative /ul (Negative); Nitrite-Dipstick Negative (Negative); Occult Blood-Urine Negative /ul (Negative); Protein-Dipstick Negative (Negative); Urine Bilirubin Dipstick Negative (Negative); Urine Clarity Clear (Clear); Urine Urobilinogen Normal (Normal)
[2018-03-26 17:18] LABS: Squamous Epithelial Cells - UA 0-5 SEEN /hpf (5-10)
[2018-03-26 17:20] LABS: White Blood Cells 0-5 SEEN /hpf (0-5)
[2018-03-26] MEDS: Morphine 4 MG/ML Syringe IV (17:28)
[2018-03-26] MEDS: 0.9% Normal Saline 1,000 ML 150 ML IV (17:28)
[2018-03-26] MEDS: Ondansetron 4 MG/2 ML Vial IV (17:29)
[2018-03-26 17:33] LABS: Absolute Lymphocyte Count 2.01 X10^3/ul (0.83-4.51); Absolute Neutrophil Count 5.8 X10^3/uL (2.0-7.7); Basophil# 0.03 X10^3/uL; Basophil% 0.3 % (0-1); Eosinophil# 0.41 X10^3/uL; Eosinophils% 4.7 % (0-5); Hematocrit 41.9 % (37-47); Hemoglobin 14.1 g/dl (12.0-15.0); Lymphocyte # 2.01 X10^3/ul (4.0); Mean Corp Hgb Conc 33.7 g/gl (32-36); Mean Corpuscular Hgb 29.3 pg (27.0-32.0); Mean Corpuscular Volume 87.1 fL (81-99); Mean Platelet Vol. 8.9 fl (6.2-12.0); Monocyte% 5.7 % (0-10); Neutrophil # 5.77 X10^3/uL (2.7-7.7); Neutrophil % 66.2 % (47-70); Platelet Count 337 K/mm3 (150-450); RBC Distribution Width CV 13.2 % (11.6-14.6); RBC Distribution Width SD 42.2 fl (35.1-43.9); Red Blood Count 4.81 M/mm3 (4.2-5.4); White Blood Count 8.7 K/mm3 (4.4-11.0)
[2018-03-26 17:34] LABS: POSITIVE COUNT NO; POSITIVE DIFFERENTIAL NO; POSITIVE MORPHOLOGY NO
[2018-03-26 17:48] LABS: Anion Gap 8 (5-15); BUN 5 mg/dL (7-18); BUN/Creat Ratio 7.2 RATIO (10-20); Calcium,Total 8.7 mg/dL (8.5-10.1); Chloride 108 mmol/L (98-107); Creatinine, Serum 0.69 mg/dL (0.55-1.02); EST Glomerular Filtration Rate 111 mL/min (>60); Est Glom Filt Rate - Afr Amer 134 mL/min (>60); Estimated Creatinine Clearance 113.13 ml/min; Glucose 85 mg/dL (74-106); Potassium 3.9 mmol/L (3.5-5.1); Sodium Level 141 mmol/L (136-145)
--- NOTE | 2018-03-26 17:54 | ED.DCSUM_ITS ---
- ER Visit Summary Date of Service: 03/26/18 Chief Complaint: Lower abdominal pain History of Present Illness: The patient is a 23 F who was seen in the emergency room on March 21 where an OB ultrasound showed missed . It appears the baby had not advanced beyond the 9-week ultrasound done several weeks ago. Patient was seen by Dr. Ahmadi in the emergency room. She was given a dose of Cytotec, because of the patient's work schedule was not going to take this until the . She is continued to have only spotting but now has increased lower abdominal pain. She is having some dysuria and frequency as well. Physical Examination: Vital signs unremarkable. Patient sitting upright in bed no acute distress. Head neck examination normal. Heart is regular rate and rhythm. Lungs sounds clear. Abdomen is soft with mild lower abdominal tenderness. No guarding or rebound. Active bowel sounds are noted. Test Results: CBC and chemistry studies are unremarkable. Urinalysis is unremarkable. Emergency Department Course and Treatment: Patient was given morphine, Zofran, and IV fluids. I spoke with Dr. Trinh, on-call for Dr. Ahmadi. They will plan to do an outpatient D&C tomorrow. Patient is to be on clear liquids tonight only and n.p.o. after midnight. She will receive a phone call in the morning and advised on time and location for her D&C tomorrow. Treatment Plan: [] Disposition: Discharge Impression: Missed Ab This note was generated with [employer] dictation software. It may contain incorrect words, spelling, and punctuation that were not noted in review of the chart prior to signing ED Disposition - Plan for ED Patient: Chief Complaint: Abd Pain Referrals: Care Physician,No Primary [Primary Care Provider] -
--- NOTE | 2018-03-26 17:55 | DCINST.ED_ITS ---
ED Disposition - Plan for ED Patient: Disposition: Home or Assisted Living Chief Complaint: Abd Pain Instructions: ED Miscarriage Inevitable Additional Instructions: Clear liquids tonight and nothing to eat/drink after midnight. The surgery de partment will call you with instructions for your D&C tomorrow.
[2018-03-26 18:05] VITALS: BP 125/57; PULSE 72; RESP 16; O2SAT 100
[2018-03-26 18:08] VITALS: BP 125/57; PULSE 79; RESP 16; O2SAT 99
== END 2018-03-26 18:09 | disposition home or self-care (01) ==
PROVIDERS: Emergency Provider Emergency Medicine
DX: O02.1 Missed abortion (principal); K59.00 Constipation, unspecified; R30.0 Dysuria; R35.0 Frequency of micturition
CPT/HCPCS: 80048; 81001; 85025; 96361; 96374; 96375; 99285; J7030; A4216; J2405

== ENCOUNTER 2018-03-27 12:06 | Day surgery (SDC) | payer OTHER, SELFPAY ==
[2018-03-26 15:56] VITALS: BMI 40.1
[2018-03-27] VITALS (10 sets, daily range): BP systolic 120–140; BP diastolic 69–80; PULSE 75–94; RESP 16–18; TEMP 36.3–36.9; O2SAT 99–100; BMI 39.2
[2018-03-27] MEDS: Doxycycline 100 MG CAPSULE PO (12:36)
--- NOTE | 2018-03-27 13:30 | POC_PTH ---
PATIENT: ESTEBAN GONZALEZ LOC: [facility] U#:[id number] AGE/SX: 23/F ROOM: RE03/27/[address]: Dr. Yandy Yuan MD : [id number] BED: DIS: 03/27/2018 SPEC #: [id number] RECD: 03/27/18 15:00 STATUS: YOHANNES HAYLIE #: [id number] RAFAEL: 03/27/18 13:[address]: Yandy Yuan DEPT: SURGICAL PATHOLOGY RECD BY: Prosper Hernández ENTERED: 03/30/18 11:49 SP TYPE: PROD CONC OTHR DR: No Primary Care Phys Tissues: Product of conception, NOS Procedures: Surgery Specimen Level IV HEADER OPERATION: Dilation and curettage, suction PRE-OP DIAGNOSIS: Missed TISSUE SUBMITTED: Products of conception MICROSCOPIC DIAGNOSIS Endometrium, curettage: Chorionic villi, decidualized stroma and trophoblastic cells consistent with products of conception. AM:vivien 1/2/19 MICROSCOPIC DESCRIPTION Slides are reviewed. GROSS DESCRIPTION Received in fixative is one container labeled with the patient's name and designated products of conception. The specimen consists of multiple irregular and hemorrhagic fragments of pink-mehta soft tissue that in aggregate measure 13 x 8 x 2 cm. parts are not grossly recognized. Disaster Director portions are submitted in one cassette. / AM:vivien 03/30/18 TC:5 CPT: 53985
--- NOTE | 2018-03-27 13:48 | PCM.OPRPT ---
Report of Operation Date of Procedure: 03/27/18 Pre-Operative Diagnosis: Missed AB Post-Operative Diagnosis: Missed AB Surgery/Procedure Performed:: Suction dilation & curettage Description of Surgical Findings:: POC's c/w 8&6 weeks Type of Anesthesia:: MAC Special Medications: Pitocin & methergine Specimen's removed: POC's Estimated Blood Loss (mL): 300ml Fluids Replaced: 1500ml Description of Procedure: MAC anesthesia placed in OR. Patient placed in dorsal lithotomy position where she was prepped & draped. Tenaculum used to grasp anterior cervix. #9 suction curette introduced and there was good return of POC's. Sharp curettage gently performed with #2 curette. TAUS performed & showed small amount of remaining POC's. Repeat suction curettage performed. 1 additional pass with sharp curette performed & confirmed gritty texture. TAUS confirmed no retained POC's. All instruments removed from vaginal cavity. Vaginal sweep performed. - Complications None
[2018-03-27] MEDS: Methylergonovine 0.2 MG/ML Ampul IM (14:07)
[2018-03-27] MEDS: Oxytocin 10 UNITS/ML Vial (14:15)
--- NOTE | 2018-03-27 14:24 | PCM.OPRPT ---
Report of Operation Date of Procedure: 03/27/18 Pre-Operative Diagnosis: Missed AB Post-Operative Diagnosis: Missed AB Surgery/Procedure Performed:: Suction dilation & curettage Description of Surgical Findings:: POC's c/w 8&6 weeks Type of Anesthesia:: MAC Special Medications: Pitocin & methergine Specimen's removed: POC's Estimated Blood Loss (mL): 300ml Fluids Replaced: 1500ml - Complications None
--- NOTE | 2018-03-27 14:29 | DCINST_ITS ---
Discharge Diet: No Restrictions Discharge Activity: Return to Normal Activity - after 24 hours May resume sexual activity in: 1-2 weeks Weight Bearing Status: Weight bearing as tolerated Call your doctor if you observe: Fever of 101 or Higher, Coldness, Increased Pain, Numbness or Tingling, Change in Color, Inability to urinate, Inability to have a bowel movement, Using more than one pad per hour, Shortness of breath, Fainting spells, Chest pain, Increased palpitations (irregular heartbeat), Uncontrolled pain Allergies/Adverse Reactions: Allergies red (food color) Allergy (Verified 03/26/18 15:58) Hives Medications to take at Discharge NK 03/21/18 Primary Care Physician: Care Physician,No Primary [Primary Care Provider] - Test Results: Test results from this visit will be discussed in further detail at your follow- up appointment, if applicable.
== END 2018-03-27 16:16 | disposition home or self-care (01) ==
LOC: SDC 12:07 → AC 12:08
PROVIDERS: Referring Provider Obstetrics & Gynecology; Visit Provider Obstetrics & Gynecology
PROC: (CPT 59820; principal; 2018-03-27 13:15)
DX: O02.1 Missed abortion (principal); Z3A.13 13 weeks gestation of pregnancy; F17.200 Nicotine dependence, unspecified, uncomplicated
CPT/HCPCS: 59820; 88305; J7120; J2405

== ENCOUNTER 2018-10-10 16:07 | Emergency (ER) | payer OTHER, SELFPAY ==
[2018-03-27 12:32] VITALS: BMI 39.2
[2018-10-10 16:08] VITALS: BP 107/56; PULSE 96; RESP 16; TEMP 36.6; O2SAT 96; BMI 36.1
[2018-10-10 16:13] VITALS: PULSE 98; RESP 16; O2SAT 96
--- NOTE | 2018-10-10 16:41 | ED.VISSUMM ---
- ER Visit Summary Date of Service: 10/10/18 Chief Complaint: Heat exhaustion History of Present Illness: The patient is a 23 F who states that she is approximately 17 weeks . G2, P0 Ab1. She states for the past couple days she has had nausea vomiting without diarrhea. No abdominal cramping. No vaginal bleeding or leakage of fluid. She states that she works at [employer] to [employer] and is extremely hot inside. She had to leave work early yesterday. She states that today she arrived at work at 1430 hrs. 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 She did have 2 episodes of emesis before she went into work. She states that in the past 4 weeks since her last ultrasound she has lost 10 pounds. She did not realize this until she was weighed here in the department. Physical Examination: Afebrile vital signs are stable Gen: Well-nourished well-developed Head: Normocephalic atraumatic Eyes: Perrl EOMI ENT: TMs clear no rhinorrhea moist mucous membranes Neck: Supple no lymphadenopathy no JVD nontender CVS: Regular rate rhythm no murmurs normal S1-S2 Respiratory: No distress clear to auscultation bilaterally chest nontender Abdomen: Soft nontender nondistended normal bowel sounds no masses Back: Nontender Extremity: Nontender no edema Skin: Normal color no rash Neuro: alert orientated ?3 CN II-XII intact normal strength sensation reflexes Psych: Normal affect normal mood Test Results: Basic labs showed a slight leukocytosis of 12.4. Specific gravity of urine is 1.02. Normal liver and BMP. Emergency Department Course and Treatment: IV was established and the patient received IV fluids. heart tones were checked and were 152. She did not will be given Phenergan for home use. I would encourage oral hydration. She is to follow-up with OB. Impression: 1. Second trimester 2. Vomiting 3. Heat exhaustion This note was generated with [employer] dictation software. It may contain incorrect words, spelling, and punctuation that were not noted in review of the chart prior to signing ED Disposition - Plan for ED Patient: Disposition: Home or Assisted Living Instructions: Heat Exhaustion, VOMITING (5y-Adult) Prescriptions: proMETHazine tablet [Phenergan] 25 mg PO Q6H PRN PRN #10 tab PRN Reason: Nausea Prescription Printed Additional Instructions: Follow-up with OB return if worsening or concerns
[2018-10-10] MEDS: 0.9% Normal Saline 1,000 ML 1000 ML IV (16:55)
[2018-10-10 17:03] LABS: Red Blood Cells-Urine 0 SEEN /hpf (0-5)
[2018-10-10 17:08] LABS: Absolute Lymphocyte Count 2.46 X10^3/ul (0.83-4.51); Absolute Neutrophil Count 8.8 X10^3/uL (2.0-7.7); Basophil# 0.04 X10^3/uL; Basophil% 0.3 % (0-1); Eosinophil# 0.32 X10^3/uL; Eosinophils% 2.6 % (0-5); Hematocrit 35.3 % (37-47); Hemoglobin 12.5 g/dl (12.0-15.0); Lymphocyte # 2.46 X10^3/ul (4.0); Lymphocyte % 19.8 % (19-41); Mean Corp Hgb Conc 35.4 g/gl (32-36); Mean Corpuscular Hgb 29.6 pg (27.0-32.0); Mean Corpuscular Volume 83.5 fL (81-99); Mean Platelet Vol. 10.1 fl (6.2-12.0); Monocyte# 0.79 X10^3/uL; Monocyte% 6.4 % (0-10); Neutrophil # 8.78 X10^3/uL (2.7-7.7); Neutrophil % 70.7 % (47-70); Platelet Count 338 K/mm3 (150-450); RBC Distribution Width CV 13.8 % (11.6-14.6); RBC Distribution Width SD 41.2 fl (35.1-43.9); Red Blood Count 4.23 M/mm3 (4.2-5.4); White Blood Count 12.4 K/mm3 (4.4-11.0)
[2018-10-10 17:13] LABS: Color, Urine Yellow (Yellow); Glucose, Dipstick Normal (Normal); Ketone-Dipstick 5 mg/dl (Negative); Leukocyte Esterase-Dipstick 100 /ul (Negative); Nitrite-Dipstick Negative (Negative); Occult Blood-Urine Negative /ul (Negative); Protein-Dipstick 15 mg/dl (Negative); Urine Bilirubin Dipstick Negative (Negative); Urine Clarity Cloudy (Clear); Urine Urobilinogen 4 mg/dl (Normal)
[2018-10-10 17:14] LABS: POSITIVE COUNT NO; POSITIVE DIFFERENTIAL NO; POSITIVE MORPHOLOGY NO
[2018-10-10 17:15] LABS: Mucous, Urine 1+ /hpf (<or=2+); Squamous Epithelial Cells - UA 0-5 SEEN /hpf (5-10)
[2018-10-10 17:17] LABS: Bacteria RARE /hpf (None Seen)
[2018-10-10 17:18] LABS: White Blood Cells 0-5 SEEN /hpf (0-5)
[2018-10-10 17:24] LABS: AST(SGOT) 11 U/L (15-37); Alanine Aminotransfer ALT/SGPT 18 U/L (13-56); Albumin, Serum 3.1 g/dL (3.2-5.0); Alkaline Phosphatase 80 U/L (45-117); Anion Gap 7 (5-15); BUN 5 mg/dL (7-18); BUN/Creat Ratio 8.7 RATIO (10-20); Bilirubin, Direct 0.08 mg/dL (0.00-0.30); Calcium,Total 8.7 mg/dL (8.5-10.1); Chloride 110 mmol/L (98-107); Creatinine, Serum 0.57 mg/dL (0.55-1.02); EST Glomerular Filtration Rate 137 mL/min (>60); Est Glom Filt Rate - Afr Amer 166 mL/min (>60); Estimated Creatinine Clearance 136.94 ml/min; Glucose 84 mg/dL (74-106); Potassium 3.8 mmol/L (3.5-5.1); Protein, Total 7.1 g/dL (6.4-8.2); Sodium Level 138 mmol/L (136-145)
[2018-10-10 18:02] VITALS: BP 104/46; PULSE 82; RESP 16; O2SAT 98
== END 2018-10-10 18:03 | disposition home or self-care (01) ==
PROVIDERS: Emergency Provider Emergency Medicine
DX: O9A.212 Injury, poisoning and certain other consequences of external causes complicating pregnancy, second trimester (principal); T67.5XXA Heat exhaustion, unspecified, initial encounter; Z3A.17 17 weeks gestation of pregnancy; X30.XXXA Exposure to excessive natural heat, initial encounter; Y93.9 Activity, unspecified; Y92.9 Unspecified place or not applicable; O21.9 Vomiting of pregnancy, unspecified; O99.332 Smoking (tobacco) complicating pregnancy, second trimester; F17.200 Nicotine dependence, unspecified, uncomplicated
CPT/HCPCS: 80048; 80076; 81001; 85025; 96360; 99283

== ENCOUNTER 2019-03-22 18:45 | Inpatient (IN) | payer OTHER, SELFPAY ==
[2019-03-22 19:31] VITALS: BMI 36.6
[2019-03-22] MEDS: Lactated Ringers 1,000 ML 50 ML IV (19:50)
[2019-03-22 20:06] LABS: Absolute Lymphocyte Count 2.69 X10^3/uL (0.83-4.51); Absolute Neutrophil Count 9.6 X10^3/uL (2.0-7.7); Basophil# 0.07 X10^3/uL; Basophil% 0.5 % (0-1); Eosinophil# 0.17 X10^3/uL; Eosinophils% 1.3 % (0-5); Hematocrit 34.8 % (37-47); Hemoglobin 11.7 g/dL (12.0-15.0); Lymphocyte # 2.69 X10^3/ul (4.0); Lymphocyte % 19.8 % (19-41); Mean Corp Hgb Conc 33.6 g/dL (32-36); Mean Corpuscular Volume 86.4 fL (81-99); Mean Platelet Vol. 10.1 fl (6.2-12.0); Monocyte# 0.92 X10^3/uL; Monocyte% 6.8 % (0-10); NRBC Flagged by Analyzer 0 % (0-5); Neutrophil # 9.64 X10^3/uL (2.7-7.7); Neutrophil % 70.9 % (47-70); Platelet Count 398 K/mm3 (150-450); RBC Distribution Width CV 14.6 % (11.6-14.6); RBC Distribution Width SD 45.8 fl (35.1-43.9); Red Blood Count 4.03 M/mm3 (4.2-5.4); White Blood Count 13.6 K/mm3 (4.4-11.0)
--- NOTE | 2019-03-22 20:08 | PCM.HP.OB ---
History Date of Admission: 11/07/17 Final SELINA: 03/19/19 Final SELINA Source: LMP Gestational age: 40 Weeks and 3 Days History of this : This is a 24 year-old, @ 40.3 weeks, elective IOL Medical History: Medical History (Last Updated 11/07/17 @ 05:00 by Chandan Kenney MD) Anxiety F41.9 Bipolar Depression F32.9 Surgical History: Surgical History (Last Updated 03/21/18 @ 16:43 by Kirsten Ahmadi DO) Hx of tonsillectomy Z90.89 Allergies red (food color) Allergy (Verified 10/10/18 16:11) Hives Home Medications: Home Medications Pnv No.95/Ferrous Fum/Folic AC [ Caplet] 1 ea PO DAILY 10/10/18 proMETHazine tablet [Phenergan] 25 mg PO Q6H PRN PRN #10 tab 10/10/18 Smoking Status: Current every day smoker Alcohol: None Number of Fetus(es): 1 NST - FHR Rate Baby A Baseline: 130 Variability:: Moderate Accelerations:: 15 x 15 Decelerations:: None NST Reactive:: Yes FHR Category:: Category I Uterine Activity:: irregular History Past Pregnancies: Past Pregnancies Delivery Date Name GA/ Weeks Outcome Route Wt Sex Labor Length Anesthesia Delivery Location Provider FOB Expected Delivery Method: Spontaneous Vaginal Review of Systems Constitutional: Denies: Anorexia Eyes: Denies: Blurred vision Cardiovascular: Denies: Chest Pain Gastrointestinal: Denies: Abdominal Pain Physical Exam General: Alert, Oriented x3 Abdomen: Soft, Non Tender, Non-Distended, Gravid Neurological: Cranial nerves II-XII grossly intact MACHINE MARKER: Normal external genitalia Estimated gestational size: Appropriate for gestational size Presentation: Cephalic Cervix Dilation (cm): 3 Station: -2 Effacement (%): 70 Assessment/Plan All Active Problems (Last Updated 11/07/17 @ 05:00 by Chandan Kenney MD) Salicylate poisoning (Acute) Tooth ache (Acute) Missed (Acute) This is a 24 year-old, @ 40.3 wks, elective IOL 1) admit to l&D 2) monitor fhr/toco 3) Pitocin 4) epdiural if requested for pain 5) anticipate
[2019-03-22] MEDS: Oxytocin 30 units/NS 500 ml 30 UNITS/500 ML IV.SOLN IV (20:30)
[2019-03-22] MEDS: Lactated Ringers 500 ML 999 ML IV (23:02)
[2019-03-22] MEDS: Nalbuphine 10 MG/ML Ampul IV (23:11)
[2019-03-22] MEDS: 0.9% Saline Lock 10 ML Syringe IV (23:12)
[2019-03-23] MEDS: Lactated Ringers 500 ML 999 ML IV (08:37)
[2019-03-23] MEDS: fentaNYL-bupivacaine (epidural) 100 ML BAG EPIDURAL ×3 (09:10→18:30)
[2019-03-23] MEDS: Lactated Ringers 1,000 ML 200 ML IV ×3 (11:09→21:16)
--- NOTE | 2019-03-23 13:16 | PCM.PN.BLA ---
Progress Note S: Patient feeling ctxs O: AROM clear fluid cvx 5/70/-2 fhts 135 with mod variability, accels tocos Q2-3 minutes A&P: continue pitocin induction
[2019-03-23] MEDS: Ondansetron 4 MG/2 ML Vial IV (17:55)
--- NOTE | 2019-03-23 21:45 | PCM.OPRPT ---
Vaginal Delivery Maternal Presentation: Elective Induction Method of Induction: Pitocin, Yonug Bulb, Amniotomy Amniotic Membrane Rupture Type: Artificial Amniotic Fluid Description: Clear Final SELINA: 03/19/19 Gestational age: 40 Weeks and 5 Days Date of Procedure: 03/23/19 Pre-Operative Diagnosis: Elective induction @ 40&3 Post-Operative Diagnosis: Same Surgery/ Procedure Performed: Spontaneous Vaginal Delivery Type of Anesthesia: Epidural Description of Procedure: Patient prepped & draped in stirrups when C/C/+3. She pushed to deliver head. Head gently guided to allow delivery of anterior and posterior shoulders. No excess traction placed on head. Body delivered & placed on maternal abdomen. 3VC clamped & cut in delayed fashion. Placenta delivered with gentle traction. Good uterine tone obtained Presentation: Vertex Placental Delivery Description: Expressed Placenta Disposition: [facility] Cord Vessel Description: 3 Vessels Cord Entanglement: None Estimated Blood Loss: 300ml A gender: Male - Nile (1 minute): 8 (5 minute): 9 Episiotomy Description: None Laceration: Vaginal Extension/lac - bilateral first degree vaginal lacerations and second degree perineal lacerations - repaired with 3-0 vicryl Medications given after delivery: IV Pitocin Complications: None
[2019-03-23] MEDS: Oxytocin 30 units/NS 500 ml 30 UNITS/500 ML IV.SOLN 334 UNITS IV (22:00)
[2019-03-24 00:21] VITALS: BP 108/58; PULSE 81; RESP 18; TEMP 37.3
[2019-03-24] MEDS: 0.9% Saline Lock 10 ML Syringe IV (01:01)
--- NOTE | 2019-03-24 01:40 | NURSING ---
report given to Lavonne BURNHAM
[2019-03-24] MEDS: Acetaminophen 500 MG Tablet 1000 MG PO (03:29)
[2019-03-24 04:00] VITALS: BP 102/49; PULSE 89; RESP 16; TEMP 36.7
[2019-03-24 09:30] VITALS: BP 108/61; PULSE 83; RESP 17; TEMP 36.1
[2019-03-24] MEDS: Naproxen 250 MG Tablet 500 MG PO (11:49)
--- NOTE | 2019-03-24 12:52 | PCM.PN.OB ---
Subjective: No complaints - Physical Exam Vitals/I&O's: Vital Signs Temp Pulse Resp BP 97 F L 83 17 108/61 03/24/19 09:30 03/24/19 09:30 03/24/19 09:30 03/24/19 09:30 Oxygen Delivery Method Room Air Weight: 220 lb Body Mass Index (BMI) 36.6 Intake and Output for Last 24 Hours 03/22/19 03/23/19 03/24/19 23:59 23:59 23:59 Intake Total 500 / 500 5007.00 / 5007.00 333 / 333 Output Total 900 / 900 1050 / 1050 Balance 500 / 500 4107.00 / 4107.00 -717 / -717 General: Alert, Oriented x3 Abdomen: Soft, Non Tender, Non-Distended - ff mid & below umb Extremities: No Calf Tenderness Current Medications Acetaminophen (Tylenol) 1,000 mg PO Q8H PRN PRN PRN Reason: Pain Score 1-3/10 Last Admin: 03/24/19 03:29 Dose: 1,000 mg Documented by: Bisacodyl (Dulcolax) 10 mg RECTAL UD PRN PRN Reason: If no BM Dibucaine (Dibucaine) 1 applic TOPICAL TID PRN PRN; Protocol PRN Reason: Discomfort Hydrocortisone (Hytone) 1 applic TOPICAL TID PRN PRN; Protocol PRN Reason: Discomfort Methylergonovine Maleate (Methergine) 0.2 mg IM X1 PRN PRN Reason: Excess bleeding/uterine atony Naproxen (Naprosyn) 500 mg PO Q8H PRN PRN PRN Reason: Pain Score 1-3/10 Last Admin: 03/24/19 11:49 Dose: 500 mg Documented by: Ondansetron HCl (Zofran) 4 mg IV Q4H PRN PRN PRN Reason: Nausea Oxycodone HCl (Oxyir) 5 - 10 mg PO Q4H PRN PRN PRN Reason: Pain Score 4-10/10 Senna/Docusate Sodium (Senokot-S, Geovanna-Colace) 1 - 2 tablet PO DAILY PRN PRN PRN Reason: Constipation Simethicone (Mylicon) 80 mg PO PCHS PRN PRN Reason: Indigestion/Stomach pain Sodium Chloride () 5 - 15 ml IV UD PRN PRN Reason: SALINE FLUSH Medical Necessity - Tobacco Use Smoking Status: Light Smoker (<10/day) Assessment/Plan All Active Problems (Last Updated 11/07/17 @ 05:00 by Chandan Kenney MD) Salicylate poisoning (Acute) Tooth ache (Acute) Missed (Acute) PPD#1 Routine care
[2019-03-24 14:30] VITALS: BP 112/56; PULSE 97; RESP 15; TEMP 36.6
[2019-03-24 18:16] VITALS: BP 109/59; PULSE 98; RESP 16; TEMP 36.6
[2019-03-24 20:05] VITALS: BP 129/68; PULSE 62; RESP 16; TEMP 37.1; O2SAT 98
[2019-03-25 01:30] VITALS: BP 115/55; PULSE 91; RESP 18; TEMP 37.2; O2SAT 97
[2019-03-25 08:35] VITALS: BP 108/50; PULSE 85; RESP 16; TEMP 36.6
--- NOTE | 2019-03-25 08:40 | PN.OBGYN_ITS ---
Subjective: Doing well per patient and nursing staff. Ambulating and taking PO without difficulty. Voiding and passing flatus. and working with la ctation. Pain controlled. Planning D/C home today. - Physical Exam Vitals/I&O's: Vital Signs Temp Pulse Resp BP Pulse Ox 98.9 F 91 18 115/55 L 97 03/25/19 01:30 03/25/19 01:30 03/25/19 01:30 03/25/19 01:30 03/25/19 01:30 Oxygen Delivery Method Room Air Weight: 220 lb Body Mass Index (BMI) 36.6 Intake and Output for Last 24 Hours 03/23/19 03/24/19 03/25/19 23:59 23:59 23:59 Intake Total 5007.00 / 5007.00 333 / 333 Output Total 900 / 900 1050 / 1050 Balance 4107.00 / 4107.00 -717 / -717 General: Alert, Oriented x3, Cooperative HEENT: Atraumatic, Normocephalic Neck: Trachea Midline Lungs: Clear to auscultation, Normal air movement, No rhonchi, No wheeze Cardiovascular: Regular rate, Regular Rhythm, No murmurs Abdomen: Bowel Sounds Present, Soft, - - Fundus firm 2 below U Extremities: No edema, - - Gm's negative bilaterally Neurological: Deep Tendon Reflexes 2+/4 and Symmetrical Psych/Mental Status: Normal Affect, Appropriate Current Medications Acetaminophen (Tylenol) 1,000 mg PO Q8H PRN PRN PRN Reason: Pain Score 1-3/10 Last Admin: 03/24/19 03:29 Dose: 1,000 mg Documented by: Bisacodyl (Dulcolax) 10 mg RECTAL UD PRN PRN Reason: If no BM Dibucaine (Dibucaine) 1 applic TOPICAL TID PRN PRN; Protocol PRN Reason: Discomfort Hydrocortisone (Hytone) 1 applic TOPICAL TID PRN PRN; Protocol PRN Reason: Discomfort Methylergonovine Maleate (Methergine) 0.2 mg IM X1 PRN PRN Reason: Excess bleeding/uterine atony Naproxen (Naprosyn) 500 mg PO Q8H PRN PRN PRN Reason: Pain Score 1-3/10 Last Admin: 03/24/19 11:49 Dose: 500 mg Documented by: Ondansetron HCl (Zofran) 4 mg IV Q4H PRN PRN PRN Reason: Nausea Oxycodone HCl (Oxyir) 5 - 10 mg PO Q4H PRN PRN PRN Reason: Pain Score 4-10/10 Senna/Docusate Sodium (Senokot-S, Geovanna-Colace) 1 - 2 tablet PO DAILY PRN PRN PRN Reason: Constipation Simethicone (Mylicon) 80 mg PO PCHS PRN PRN Reason: Indigestion/Stomach pain Sodium Chloride () 5 - 15 ml IV UD PRN PRN Reason: SALINE FLUSH Medical Necessity - Tobacco Use Smoking Status: Light Smoker (<10/day) Assessment/Plan All Active Problems (Last Updated 11/07/17 @ 05:00 by Chandan Kenney MD) Salicylate poisoning (Acute) Tooth ache (Acute) Missed (Acute) A:PPD #2 P: 1) Routine and instructions 2) Declines pain medication, will use OTC 3) Follow up in 2 weeks and 6 weeks PP 4) D/C home today.
--- NOTE | 2019-03-25 08:44 | DCINST_ITS ---
Discharge Diet: No Restrictions Discharge Activity: Return to Normal Activity, May not drive while taking narcotic pain medications., May Shower May resume sexual activity in: 4-6 weeks Weight Bearing Status: Full weight bearing Additional Activity Instructions:: Nothing in the vagina for 4-6 weeks. You may return to work/school in 6 weeks. Call your doctor if your incision/area has: Continuous Slow Oozing, Sudden Increased Bleeding, Increased Pain/ Swelling, Increased Redness, Foul Smelling Discharge Call your doctor if you observe: Fever of 101 or Higher, Inability to urinate, Inability to have a bowel movement, Using more than one pad per hour, Shortness of breath, Chest pain, Increased palpitations (irregular heartbeat), Calf discomfort, Uncontrolled pain Additional Instructions: If you experience any of the following, contact your healthcare provider. * Bleeding that soaks a pad every hour for 2 hours * Fever 100.4 or higher * Unrelieved incision or abdominal pain * Swelling, redness, discharge or bleeding from your incision or episiotomy site * Your incision begins to separate * Problems urinating (including inability to urinate or burning while urinating). * Visual changes * Severe headache * Flu-like symptoms * Pain or redness in one of both of your breasts * Pain, warmth, tenderness or swelling in your legs, especially the calf area * Frequent nausea and vomiting * Symptoms of depression or anxiety If you experience any of the following, call 911 or go to the nearest Emergency Room. * Chest pain * Problems breathing * Seizure activity * Partial or complete paralysis of a body part, slurred speech, weakness or drooping of the face, or a sudden inability to walk or hold your balance Allergies/Adverse Reactions: Allergies red (food color) Allergy (Verified 03/22/19 20:54) Hives Medications to take at Discharge Pnv No.95/Ferrous Fum/Folic AC [ Caplet] 1 ea PO DAILY 10/10/18 proMETHazine tablet [Phenergan] 25 mg PO Q6H PRN PRN #10 tab 10/10/18 Please Follow Up With: Yandy Yuan When: Call to make an appointment with your doctor in 2 weeks and 6 weeks. If you had elevated Blood Pressure or 4th degree laceration you will need to be seen in 2 weeks. Primary Care Physician: Care Physician,No Primary [Primary Care Provider] - Test Results: Test results from this visit will be discussed in further detail at your follow- up appointment, if applicable.
--- NOTE | 2019-03-25 11:15 | CASEMGMT ---
Social Work Brief Assessment - Labor and Delivery Unit Refer documentation below for further details. Reason for Referral: MOB WITH HISTORY OF DEPRESSION, ANXIETY, AND BIPOLAR DISORDER. Date of Intervention: 03/25/19 Time of Intervention: 11:15A Informant: Medical record and mother of baby (MOB) History: THIS IS MOB?S FIRST CHILD, BABY BOY [place]. MOB WITH HISTORY OF ANXIETY, DEPRESSION AND BIPOLAR DISORDER. OSMAN REPORTS IS CURRENTLY NOT ON MEDICATIONS. Assessment: MET WITH MOB IN ROOM. MOB UP WALKING AROUND ROOM UPON ENTERING. INTRODUCED ROLE AND REASON FOR REFERRAL. OSMAN REPORTS IS CURRENTLY LIVING WITH HER MOTHER IN [place]. MOB REPORTS GOOD SUPPORT FROM FAMILY AND FOB, PINA MISSAEL. MOB REPORTS SHE AND FOB HAVE BEEN TOGETHER FOR 2 YEARS. FOB WORKS [employer] A SUPERVISOR WELDING EQUIPMENT REPAIRER. MOB STATES THIS IS THEIR FIRST CHILD. MOB STATES HAS ALL NEEDS MET FOR BABY INCLUDING DIAPERS, WIPES, CLOTHES, CAR SEAT, CRIB. MOB STATES IS CONNECTED WITH [facility] AND WILL BE CALLING [facility]. MOB STATES PREVIOUS SERVICES THROUGH THE [facility]ING [facility] D/T HISTORY OF DEPRESSION, ANXIETY AND BIPOLAR DISORDER. OSMAN REPORTS HAS BEEN DOING WELL WITHOUT MEDICATIONS AND STATES MEDICATIONS ?MADE IT WORSE.? MOB STATES PREVIOUS HISTORY OF SUICIDAL IDEATION AND ATTEMPT. MOB DENIES ANY CURRENT SUICIDAL IDEATION. EDUCATION PROVIDED ON PPD AND INFORMATIONAL HANDOUTS GIVEN. DISCUSSED COUNSELING AND MOB STATES IF NEED ARISES WILL MAKE APPOINTMENT. MOB ADMITS TO PREVIOUS HISTORY OF MARIJUANA USE AND STATES NONE THROUGHOUT . MOB IS BREAST FEEDING AND STATES IT IS GOING WELL. MOB STATES WOULD BENEFIT FROM LIST OF [facility] RESOURCES. RESOURCES TO BE PROVIDED. DISCUSSED WITH NURSING STAFF. NO FURTHER ISSUES OR CONCERNS. Plan: HOME WITH SUPPORT FROM MOTHER AND FOB. RESOURCES PROVIDED. No further needs requested or indicated. -Genet Sullivan, TURNAROUND PLANNER, PRINTING ROLLER HANDLER
[2019-03-25 13:12] VITALS: BP 112/62; PULSE 105; RESP 16; TEMP 36.6
== END 2019-03-25 13:40 | disposition home or self-care (01) | DRG 807 ==
PROVIDERS: Admitting Provider Obstetrics & Gynecology; Visit Provider Obstetrics & Gynecology
DX: O48.0 Post-term pregnancy (principal); O70.1 Second degree perineal laceration during delivery; O99.334 Smoking (tobacco) complicating childbirth; F17.210 Nicotine dependence, cigarettes, uncomplicated; Z3A.40 40 weeks gestation of pregnancy; Z37.0 Single live birth
CPT/HCPCS: 59025; 59050; 85025; 86850; 86900; 86901; 99218; J7120; A4216; G0378; J2405

== ENCOUNTER 2020-05-24 15:31 | Emergency (ER) | payer OTHER, SELFPAY ==
[2020-05-24 15:31] VITALS: BP 142/65; PULSE 85; RESP 18; TEMP 36.3; O2SAT 99; BMI 37.4
--- NOTE | 2020-05-24 15:36 | EKG12_ITS ---
Test Reason : CP Blood Pressure : / mmHG Vent. Rate : 073 BPM Atrial Rate : 073 BPM P-R Int : 108 ms QRS Dur : 096 ms QT Int : 404 ms P-R-T Axes : -05 040 038 degrees QTc Int : 445 ms Sinus rhythm with short PA Otherwise normal ECG Confirmed by JURGEN GREENE, KAREEM ([id number]), commissioning editor PATTI CORONA ([id number]) on 05/29/2020 9:36:58 AM Referred By: CASSIE Confirmed By:STU SEAMAN MD
--- NOTE | 2020-05-24 15:36 | RAD_ITS ---
STUDY: X-RAY CHEST REASON FOR EXAM: Female, 25 years old. Chest pain TECHNIQUE: Single AP portable view of the chest. COMPARISON: None. FINDINGS: The lungs are clear and expanded. There is no demonstrated pleural abnormality. Normal size heart. Normal mediastinum and marianne. Normal visualized pulmonary arteries. Normal visualized aortic arch and descending thoracic aorta. Normal visualized thoracic spine. Normal visualized ribs, clavicles, and shoulders. There is no demonstrated abnormality of the visualized soft tissue structures of the upper abdomen. RAD/Chest 1 View (Portable) IMPRESSION: Normal x-ray examination of the chest. Electronically Signed: Bryce Smith MD at 15:49 EST , Service support ,
[2020-05-24 16:44] LABS: Absolute Lymphocyte Count 2.29 X10^3/uL (0.83-4.51); Absolute Neutrophil Count 8.2 X10^3/uL (2.0-7.7); Basophil# 0.08 X10^3/uL; Basophil% 0.7 % (0-1); Eosinophil# 0.28 X10^3/uL; Eosinophils% 2.4 % (0-5); Hematocrit 43.2 % (37-47); Hemoglobin 14.5 g/dL (12.0-15.0); Lymphocyte # 2.29 X10^3/ul (4.0); Mean Corp Hgb Conc 33.6 g/dL (32-36); Mean Corpuscular Hgb 29.1 pg (27.0-32.0); Mean Corpuscular Volume 86.6 fL (81-99); Monocyte# 0.54 X10^3/uL; Monocyte% 4.7 % (0-10); NRBC Flagged by Analyzer 0 % (0-5); Neutrophil # 8.24 X10^3/uL (2.7-7.7); Neutrophil % 71.9 % (47-70); Platelet Count 361 K/mm3 (150-450); RBC Distribution Width CV 12.6 % (11.6-14.6); RBC Distribution Width SD 39.7 fl (35.1-43.9); Red Blood Count 4.99 M/mm3 (4.2-5.4); White Blood Count 11.5 K/mm3 (4.4-11.0)
--- NOTE | 2020-05-24 16:58 | CT_ITS ---
STUDY: CTA CHEST REASON FOR EXAM: Female, 25 years old. Chest pain. RADIATION DOSAGE (If Supplied By Facility): CTDIvol = ( 15.06 ) mGy, DLP = ( 463.305 ) mGycm TECHNIQUE: The examination was performed with the intravenous administration of IV 100mL Isovue-370. Post-processing of the angiographic images was performed, with multiplanar reformation and 3D reconstruction. Individualized dose optimization techniques were used for this CT. COMPARISON: Chest, 05/24/2020. FINDINGS: Normal enhancement of the main pulmonary artery and right and left pulmonary arteries. Normal enhancement of the bilateral peripheral pulmonary arteries. There is no demonstrated pulmonary embolism. Normal thoracic aorta and visualized great vessels. There is no demonstrated aortic dissection. Normal heart and pericardium. Normal mediastinum. Normal hilar regions. Normal visualized trachea and bronchi. The lungs are well expanded. Normal pulmonary parenchyma. Normal pleura. Normal chest wall structures. Normal osseous structures. There is evidence of a separate right hepatic artery arising from the SMA. Otherwise normal visualized upper abdomen. CT/CTA Chest W/WO Contrast IMPRESSION: 1. No evidence of pulmonary embolus. 2. No aortic dissection or aneurysm. 3. No acute pulmonary disease. 4. 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 Electronically Signed: Marty Tirado DO at 18:14 EST Tel [phone], Service support ,
--- NOTE | 2020-05-24 16:58 | ED.VIS.GEN ---
History of Present Illness Chief Complaint: Chest Pain Informant: Patient Narrative: 25-year-old female presenting with intermittent chest pain which she describes as dull aching retrosternally. This has been going on for about 2 months. She also admits to some shortness of breath. When these episodes occur she states she has to sit down for about 10 minutes and recover. Patient denies any cardiac history. She has no history of DVT/PE. She is on Mirena currently Past Medical History - Allergies and Home Meds Allergies/Adverse Reactions: Allergies red (food color) Allergy (Verified 05/24/20 15:33) Hives Primary Care Physician: Care Physician,No Primary [Primary Care Provider] - Surgical History: tonsillectomy Smoking Status: Light Smoker (<10/day) - Family History Maternal Family History: Reports: Cancer Physical Exam Vital Signs/Narrative: Vital Signs Temp Pulse Resp BP Pulse Ox 05/24/20 15:31 97.4 F L 85 18 142/65 H 99 Diagnostic/Tx/Re-eval Clinical Impression(s) from Imaging Studies Chest X-Ray 05/24/20 15:36 IMPRESSION: Normal x-ray examination of the chest. Electronically Signed: Bryce Smith MD at 15:49 EST , Service support , Chest CTA 05/24/20 16:58 IMPRESSION: 1. No evidence of pulmonary embolus. 2. No aortic dissection or aneurysm. 3. No acute pulmonary disease. 4. 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 Electronically Signed: Marty Tirado DO at 18:14 EST Tel [phone], Service support , Laboratory Data 05/24/20 05/24/20 05/24/20 16:30 16:30 17:20 WBC 11.5 H 12.9 H RBC 4.99 4.89 Hgb 14.5 14.0 Hct 43.2 43.4 MCV 86.6 88.8 MCH 29.1 28.6 MCHC 33.6 32.3 RDW Std Deviation 39.7 41.7 RDW Coeff of Tessa 12.6 12.8 Plt Count 361 370 MPV 10.0 9.5 Immature Gran % (Auto) 0.300 0.400 Neut % (Auto) 71.9 H 72.6 H Lymph % (Auto) 20.0 18.1 L [place] % (Auto) 4.7 6.1 Eos % (Auto) 2.4 2.2 Baso % (Auto) 0.7 0.6 Absolute Neuts (auto) 8.2 H 9.3 H Absolute Lymphs (auto) 2.29 2.33 Nucleated RBC % 0 0 Sodium 138 Potassium 4.1 Chloride 110 H Carbon Dioxide 22.0 Anion Gap 6 BUN 11 Creatinine 0.96 Estim Creat Clear Calc 79.91 Est GFR (MDRD) Af Amer 90 Est GFR (MDRD) Non-Af 74 BUN/Creatinine Ratio 11.4 Glucose 90 Calcium 8.9 Troponin I < 0.015 - Rhythm Strip Rhythm Strip: Sinus Rhythm Rate: 73 - EKG Initial EKG Interpretation: Sinus Rhythm, No Acute Injury Pattern - Medical Decision Making 25-year-old female presenting with chest pain and shortness of breath for 2 months. She is not had this evaluated yet. She has no cardiac history. Patient states she is on Mirena control. Patient had EKG performed on arrival which is sinus rhythm at 73 bpm without any signs of ischemic changes as interpreted by myself. Patient had CTA of the chest which was negative. Patient has a slight leukocytosis with a white count of 12.9. Her vital signs are stable and she is afebrile however. There is no identified pneumonia on her CTA. She is not having abdominal pain or urinary complaints. No function is normal. Electrolytes are unremarkable. Patient's heart score is 0. Given this has been going on for a couple of months I do not believe she needs a delta troponin and EKG. Patient will be discharged home in stable condition. Impression: 1. Chest pain 2. Shortness of breath ED Disposition - Plan for ED Patient: Disposition: Home or Assisted Living Instructions: ED Chest Pain, Noncardiac Referrals: Care Physician,No Primary [Primary Care Provider] -
[2020-05-24 17:01] LABS: Anion Gap 6 (5-15); BUN 11 mg/dL (7-18); BUN/Creat Ratio 11.4 RATIO (10-20); Calcium,Total 8.9 mg/dL (8.5-10.1); Chloride 110 mmol/L (98-107); Creatinine, Serum 0.96 mg/dL (0.55-1.02); EST Glomerular Filtration Rate 74 mL/min (>60); Est Glom Filt Rate - Afr Amer 90 mL/min (>60); Estimated Creatinine Clearance 79.91 ml/min; Glucose 90 mg/dL (74-106); Potassium 4.1 mmol/L (3.5-5.1); Sodium Level 138 mmol/L (136-145)
[2020-05-24 17:38] LABS: Absolute Lymphocyte Count 2.33 X10^3/uL (0.83-4.51); Absolute Neutrophil Count 9.3 X10^3/uL (2.0-7.7); Basophil# 0.08 X10^3/uL; Basophil% 0.6 % (0-1); Eosinophil# 0.28 X10^3/uL; Eosinophils% 2.2 % (0-5); Hematocrit 43.4 % (37-47); Lymphocyte # 2.33 X10^3/ul (4.0); Lymphocyte % 18.1 % (19-41); Mean Corp Hgb Conc 32.3 g/dL (32-36); Mean Corpuscular Hgb 28.6 pg (27.0-32.0); Mean Corpuscular Volume 88.8 fL (81-99); Mean Platelet Vol. 9.5 fl (6.2-12.0); Monocyte# 0.79 X10^3/uL; Monocyte% 6.1 % (0-10); NRBC Flagged by Analyzer 0 % (0-5); Neutrophil # 9.32 X10^3/uL (2.7-7.7); Neutrophil % 72.6 % (47-70); Platelet Count 370 K/mm3 (150-450); RBC Distribution Width CV 12.8 % (11.6-14.6); RBC Distribution Width SD 41.7 fl (35.1-43.9); Red Blood Count 4.89 M/mm3 (4.2-5.4); White Blood Count 12.9 K/mm3 (4.4-11.0)
[2020-05-24 18:08] VITALS: BP 99/58; PULSE 70; RESP 14; TEMP 36.6; O2SAT 99
[2020-05-24 19:04] VITALS: BP 100/63; PULSE 64; RESP 14; O2SAT 97
--- NOTE | 2020-05-24 19:05 | ED.RN ---
THIS NURSE REVIEWED D/C INSTRUCTIONS WITH PT. PT VERBALIZED UNDERSTANDING OF INSTRUCTIONS. IV D/C. IV CATHETER INTACT. PT TOLERATED WELL. PT DENIES FURTHER NEEDS OR QUESTIONS AT THIS TIME.
== END 2020-05-24 19:07 | disposition home or self-care (01) ==
PROVIDERS: Emergency Provider Student in an Organized Health Care Education/Training Program
DX: R07.89 Other chest pain (principal); R06.00 Dyspnea, unspecified; Z79.3 Long term (current) use of hormonal contraceptives; F17.200 Nicotine dependence, unspecified, uncomplicated
CPT/HCPCS: 71045; 71275; 80048; 84484; 85025; 93005; 99285; Q9967; A4216

== ENCOUNTER 2023-06-21 16:23 | Emergency (ER) | payer OTHER, SELFPAY ==
[2023-06-21 16:24] VITALS: BP 125/84; PULSE 101; RESP 16; TEMP 36.5; O2SAT 99; BMI 33.7
--- NOTE | 2023-06-21 18:21 | ED.RN ---
Patient LWBS at 1803.
== END 2023-06-21 18:10 | disposition left against medical advice (07) ==
LOC: ED 18:39
DX: M54.9 Dorsalgia, unspecified (principal)